=== PATIENT | female | born 2005 ===

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

== ENCOUNTER 2023-11-24 19:12 | Emergency (ER) | payer OTHER ==
[~2023-11-24] VITALS: Ht 160 cm; Wt 99.8 kg
[2023-11-24 19:15] VITALS: BP 157/98
[2023-11-24] MEDS ORDERED: Ketorolac Tromethamine 30mg Vial IM ONE (19:45)
== END 2023-11-24 20:59 | disposition home or self-care (01) ==
LOC: ER 19:12
DX: S83.92XA Sprain of unspecified site of left knee, initial encounter (principal); S70.02XA Contusion of left hip, initial encounter; S80.02XA Contusion of left knee, initial encounter; V80.010A Animal-rider injured by fall from or being thrown from horse in noncollision accident, initial encounter; Z88.5 Allergy status to narcotic agent
CPT/HCPCS: 73562-LT; 96372; 99284-25; J1885